=== PATIENT | male | born 1950 | race Caucasian/White ===

== ENCOUNTER 2020-07-22 08:07 | Emergency (ER) | payer MEDICARE, OTHER, SELFPAY ==
[2020-07-22 08:15] VITALS: BP 141/83; PULSE 79; RESP 16; TEMP 36.3; O2SAT 100; BMI 25.7
--- NOTE | 2020-07-22 08:29 | ED_ITS ---
HPI - Abdominal Pain General Chief Complaint: Nausea/Vomiting/Diarrhea Stated Complaint: middle abd pain 5/10/nausea/vomiting x1 day Time Seen by Provider: 07/22/20 08:25 Source: patient Mode of arrival: Ambulatory Limitations: no limitations History of Present Illness HPI narrative: Patient is a 70-year-old male presents with abdominal cramping which started last evening. He has no diarrhea he has felt a little nauseated but no vomiting. No body aches fever or chills. He recently had a pacemaker placed for sick sinus syndrome and orthostatic hypotension he says it is not actually working. But he has not passed out he has no chest pain no heart palpitations. He also started midodrine recently to help with the hypotension. Related Data Home Medications Medication Instructions Recorded Confirmed escitalopram oxalate 10 mg tablet 10 mg PO DAILY 07/06/20 07/15/20 esomeprazole magnesium 20 mg 20 mg PO DAILY 07/06/20 07/15/20 capsule,delayed release lamotrigine 300 mg tablet,extended 300 mg PO DAILY 07/06/20 release 24 hr multivit-mins no.11-folic acid 5 mg PO 07/06/20 07/15/20 mg tablet triamcinolone acetonide 0.1 % 1 applictn TOP DAILY 07/06/20 topical cream chlorhexidine gluconate 4 % 1 applictn TOP ONCE 07/15/20 07/15/20 topical liquid mupirocin calcium 2 % topical cream 1 applictn TOP BID 07/15/20 07/15/20 denosumab 60 mg/mL subcutaneous 60 mg SUBCUT [id number] 07/21/20 syringe leuprolide (3 month) 22.5 mg (3 22.5 mg SUBCUT [id number] 07/21/20 month) subcutaneous syringe Allergies Allergy/AdvReac Type Severity Reaction Status Date / Time No Known Drug Allergies Allergy Verified 07/15/20 15:34 Review of Systems Review of Systems ROS Unobtainable: All systems reviewed & are unremarkable except as noted in HPI and below Constitutional Constitutional: Reports body ache(s), Denies chills, Denies increased appetite and Denies poor appetite Eyes Eyes: Denies change in vision, Denies eye discharge, Denies irritation and Denies loss of vision ENT Ears, Nose, Mouth, and Throat: Denies change in voice, Denies neck pain and Denies sore throat Cardiovascular Cardiovascular: Denies dyspnea and Denies dyspnea on exertion Respiratory Respiratory: Denies cough, Denies dyspnea, Denies dyspnea on exertion and Denies wheezing Gastrointestinal Gastrointestinal: Reports as per HPI Musculoskeletal Musculoskeletal: Denies neck pain Integumentary/Breasts Skin/Breast: Denies pruritus, Denies erythema, Denies rash and Denies wounds Neurologic Neurologic: Denies loss of vision Allergic/Immunologic Allergic/Immunologic: Denies wheezing Patient History Medical History Depression (Acute) Elevated PSA (Acute) Erectile dysfunction (Acute) GERD (gastroesophageal reflux disease) (Acute) Prostate cancer (Acute) Prostate cancer (Acute) Surgical History H/O prostatectomy (Acute) Social History Smoking Status: Never smoker Smoking Status: Never smoker Exam Initial Vital Signs Initial Vital Signs: Vital Signs Temperature 97.3 F L 07/22/20 08:15 Pulse Rate 79 07/22/20 08:15 Respiratory Rate 16 07/22/20 08:15 Blood Pressure 141/83 H 07/22/20 08:15 Pulse Oximetry 100 07/22/20 08:15 GENERAL: Well-appearing, well-nourished and in no acute distress. HEENT: Head atraumatic,EOMI, pupils reactive, face symmetric, moist mucous membranes CARDIOVASCULAR: Regular rate and rhythm without murmurs, rubs or gallops. RESPIRATORY: Breath sounds equal bilaterally, no wheezes rales or rhonchi. ABDOMEN: Soft, mildly tender across lower abdomen no localization no guarding or rebound. Normoactive bowel sounds all 4 quadrants. EXTREMITIES: Normal range of motion, no clubbing or edema. Neurovascularly intact NEUROLOGICAL: Alert and oriented x4.Normal gait and speech. SKIN: Warm, dry, no laceration, no petechiae, no rashes or lesions. Course Orders Ordered: ED Orders 07/22/20 08:57 EKG-12 Lead Stat 07/22/20 09:00 Complete Blood Count AUTO DIFF Stat Comprehensive Metabolic Panel Stat Lipase Stat Discontinued Medications Sodium Chloride (Normal Saline 0.9%) 500 mls @ 1,000 mls/hr IV BOLUS ONE Stop: 07/22/20 09:12 Last Admin: 07/22/20 09:48 Dose: Not Given Documented by: ANDRIA Ondansetron HCl (Zofran) 4 mg IV NOW ONE Stop: 07/22/20 08:44 Last Admin: 07/22/20 09:48 Dose: Not Given Documented by: ANDRIA Vital Signs Vital signs: Vital Signs - 8 hr 07/22/20 08:15 07/22/20 08:58 07/22/20 09:00 Temperature 97.3 F L Pulse Rate 79 66 64 Respiratory Rate 16 Blood Pressure 141/83 H Pulse Oximetry 100 96 96 07/22/20 09:30 07/22/20 10:04 Temperature 98.5 F Pulse Rate 63 70 Respiratory Rate 16 Blood Pressure 123/84 Pulse Oximetry 95 100 MDM - Abdominal Pain Lab Data Attestation: I reviewed the patient's lab results. Result diagrams: 07/22/20 09:00 07/22/20 09:00 Labs: Lab Results 07/22/20 07/22/20 Range/Units 09:00 09:00 WBC 7.7 (4.5-11.0) X10^3/uL RBC 4.22 L (4.5-5.9) X10^6/uL Hgb 12.9 L (13.5-17.5) g/dL Hct 38.8 L (41-53) % MCV 92.0 (80-100) fL MCH 30.5 (26-34) PG MCHC 33.1 (30-36) % RDW 12.7 (11.6-14.8) % Plt Count 221 (150-400) X10^3/uL Neut % (Auto) 82.0 H (50-75) % Lymph % (Auto) 14.2 L (25-40) % Atlantic % (Auto) 3.1 (3-14) % Eos % (Auto) 0.2 L (2-4) % Baso % (Auto) 0.5 (0-2) % Neut # (Auto) 6300 (4072-7756) /uL Lymph # (Auto) 1100 (8013-1330) /uL Atlantic # (Auto) 200 (0-900) /uL Eos # (Auto) 0 (0-450) /uL Baso # (Auto) 0 (0-100) /uL Sodium 135 L (137-145) mmol/L Potassium 4.0 (3.4-5.1) mmol/L Chloride 102 (98-107) mmol/L Carbon Dioxide 25 (22-32) mmol/L BUN 25 H (9-20) mg/dL Creatinine 0.85 (0.66-1.25) mg/dL Estimated GFR > 60.0 (>60) mL/min BUN/Creatinine Ratio 29.4 H (6-22) Glucose 131 H (80-110) mg/dL Calcium 8.8 (8.4-10.2) mg/dL Total Bilirubin 0.6 (0.2-1.3) mg/dL AST 36 (17-59) IU/L ALT 38 (<50) IU/L Alkaline Phosphatase 67 (38-126) U/L Total Protein 7.3 (6.3-8.2) g/dL Albumin 4.2 (3.5-5.0) g/dL Globulin 3.1 (1.7-4.1) g/dL Albumin/Globulin Ratio 1.4 (1.0-2.8) Lipase 52 (23-300) U/L ECG Data Attestation: I personally reviewed and interpreted this ECG as follows: Prior ECG tracings: not available for review Interpretation: Sinus rhythm rate 64 p.r. interval 176 QRS [address] changes atrial pacemaker noted MDM Narrative Medical decision making narrative: Patient is a retired ER physician. Initially CT scan ordered however patient overall feeling better but blood work is reass uring he does not want CT scan. He was able to ambulate without any difficulty. He overall feels better and ready and able to go home. Discharge Plan Departure Patient Disposition: Home Clinical Impression: Abdominal pain Qualifiers: Abdominal location: generalized Qualified Code(s): R10.84 - Generalized abdominal pain Discharge Date/Time: 07/22/20 10:11 Instructions: DI for Abdominal Pain-Adult Activity Restrictions/Additional Instructions: *You have been diagnosed with abdominal pain *What to do: Rest, increase fluid intake *Continue to take medications as directed *Follow up with your primary care provider in 2-3 days *Return to ER if you should have increased abdominal pain inability to tolerate fluids, passing out [or] any new, worsening or concerning symptoms Prescriptions: No Action Dialyvite 5000 5 mg tablet PO RF: 0 escitalopram oxalate 10 mg tablet 10 mg PO DAILY RF: 0 esomeprazole magnesium [Nexium] 20 mg capsule,delayed release(DR/EC) 20 mg PO DAILY RF: 0 lamotrigine [Lamictal XR] 300 mg tablet extended release 24hr 300 mg PO DAILY RF: 0 triamcinolone acetonide 0.1 % cream 1 applictn TOP DAILY RF: 0 Eligard (3 month) 22.5 mg syringe 22.5 mg SUBCUT [id number] RF: 0 Prolia 60 mg/mL syringe 60 mg SUBCUT [id number] RF: 0 mupirocin calcium 2 % cream 1 applictn TOP BID RF: 0 chlorhexidine gluconate [Hibiclens] 4 % liquid 1 applictn TOP ONCE RF: 0 Referrals: Saul Chase MD [Primary Care Provider] -
[2020-07-22 08:58] VITALS: PULSE 66; O2SAT 96
[2020-07-22 09:00] VITALS: PULSE 64; O2SAT 96
[2020-07-22 09:12] LABS: Add Manual Diff / Slide Review NO; Basophils Absolute Auto 0 /uL (0-100); Basophils Percent Auto 0.5 % (0-2); Eosinophils Absolute Auto 0 /uL (0-450); Eosinophils Percent Auto 0.2 % (2-4); Hematocrit 38.8 % (41-53); Hemoglobin 12.9 g/dL (13.5-17.5); Lymphocytes Absolute Auto 1100 /uL (1100-4500); Lymphocytes Percent Auto 14.2 % (25-40); Mean Corpuscular HGB Conc 33.1 % (30-36); Mean Corpuscular Hemoglobin 30.5 PG (26-34); Monocytes Absolute Auto 200 /uL (0-900); Monocytes Percent Auto 3.1 % (3-14); Neutrophils Absolute Auto 6300 /uL (1500-7000); Platelet Count 221 X10^3/uL (150-400); Red Blood Cell Count 4.22 X10^6/uL (4.5-5.9); Red Cell Distribution Width 12.7 % (11.6-14.8); White Blood Cell Count 7.7 X10^3/uL (4.5-11.0)
[2020-07-22 09:27] LABS: Alanine Aminotransferase 38 IU/L (<50); Albumin 4.2 g/dL (3.5-5.0); Albumin Globulin Ratio 1.4 (1.0-2.8); Alkaline Phosphatase 67 U/L (38-126); Aspartate Aminotransferase 36 IU/L (17-59); BUN Creatinine Ratio 29.4 (6-22); Bilirubin Total 0.6 mg/dL (0.2-1.3); Blood Urea Nitrogen 25 mg/dL (9-20); Calcium 8.8 mg/dL (8.4-10.2); Carbon Dioxide 25 mmol/L (22-32); Chloride 102 mmol/L (98-107); Estimated Glomerular Filt Rate > 60.0 mL/min (>60); Globulin 3.1 g/dL (1.7-4.1); Glucose 131 mg/dL (80-110); HEMOLYSIS < 15 (0-50); Lipase 52 U/L (23-300); Sodium 135 mmol/L (137-145); Total Protein 7.3 g/dL (6.3-8.2)
[2020-07-22 09:30] VITALS: PULSE 63; O2SAT 95
--- NOTE | 2020-07-22 09:34 | PC.NURSE ---
Pt reports improvement. Dr at bedside. pt is declining medication and imaging at this time.
[2020-07-22 10:04] VITALS: BP 123/84; PULSE 70; RESP 16; TEMP 36.9; O2SAT 100
== END 2020-07-22 10:11 | disposition home or self-care (01) ==
PROVIDERS: Emergency Provider Emergency Medicine; PCP Student in an Organized Health Care Education/Training Program
DX: R10.84 Generalized abdominal pain (principal); R07.9 Chest pain, unspecified; R11.0 Nausea; Z95.0 Presence of cardiac pacemaker; I95.9 Hypotension, unspecified
CPT/HCPCS: 36415; 80053; 83690; 85025; 93005; 99283; 99284

== ENCOUNTER → 2020-09-07 10:10 | Outpatient (CLI) | payer MEDICARE, OTHER, SELFPAY ==
[2020-09-07 11:24] LABS: Blood Urea Nitrogen 24 mg/dL (9-20); Calcium 8.9 mg/dL (8.4-10.2); Carbon Dioxide 32 mmol/L (22-32); Chloride 103 mmol/L (98-107); Estimated Glomerular Filt Rate > 60.0 mL/min (>60); Glucose 104 mg/dL (80-110); HEMOLYSIS < 15 (0-50); Potassium 4.6 mmol/L (3.4-5.1); Sodium 138 mmol/L (137-145)
[2020-09-07 17:36] LABS: Vitamin D 25 Hydroxy (D3) 48.2 ng/mL (30.0-100.0)
== END ==
PROVIDERS: PCP Student in an Organized Health Care Education/Training Program; Referring Provider Student in an Organized Health Care Education/Training Program; Visit Provider Student in an Organized Health Care Education/Training Program
DX: Z13.820 Encounter for screening for osteoporosis (principal); I95.1 Orthostatic hypotension; E55.9 Vitamin D deficiency, unspecified; Z85.46 Personal history of malignant neoplasm of prostate; Z91.89 Other specified personal risk factors, not elsewhere classified; Z79.899 Other long term (current) drug therapy
CPT/HCPCS: 36415; 77080; 80048; 82306

== ENCOUNTER → 2021-02-16 11:49 | Outpatient (CLI) | payer MEDICARE, OTHER, SELFPAY ==
--- NOTE | 2021-02-16 11:57 | DI.CT.S_ITS ---
PROCEDURE: CT HEAD/BRAIN WO CON INDICATIONS: F/u brain trauma hemorrhagic stroke. TECHNIQUE: Noncontrast 4.5 mm thick angled axial sections acquired from the foramen magnum to the vertex, with coronal and sagittal reformats. For radiation dose reduction, the following was used: automated exposure control, adjustment of mA and/or kV according to patient size. COMPARISON: [facility], CT, CT HEAD WITHOUT CONTRAST, 12/27/2020, 16:07. Outside Facility, RG, CT HEAD W/O CONTRAST, 01/04/2021, 21:59. Outside Facility, RG, CT HEAD W/O CONTRAST, 01/10/2021, 11:04. Outside Facility, RG, CT HEAD W/O CONTRAST, 02/05/2021, 15:34. FINDINGS: Image quality: Excellent. CSF spaces: Basal cisterns are patent. No extra-axial fluid collections. The ventricles are symmetric in size and shape. Brain: Encephalomalacia can be seen involving the anterior inferior frontal lobes medially, right worse than left. A milder anterior left temporal area of low density is also seen. The previously seen hemorrhage is no longer definitely seen and has been resorbed. No new hemorrhage can be seen. No intracranial masses. There is cerebral volume loss for age, with resultant ventricular and sulcal prominence. There are periventricular and deep white matter chronic small vessel ischemic changes. There is intracranial internal carotid artery atherosclerosis. Skull and face: A mildly displaced left occipital fracture is again seen. Calvarium and visualized facial bones appear intact, without suspicious lesions. Sinuses: Visualized sinuses and mastoids are clear. IMPRESSION: Expected evolution of the patient's known bilateral frontal infarctions with encephalomalacia, right worse than left. A milder evolving infarction can also be seen involving the anterior left temporal lobe. Left occipital bone fracture again seen. Dictated by: Simeon Cedeño M.D. on 02/16/2021 at 12:26 Approved by: Simeon Cedeño M.D. on 02/16/2021 at 12:31
== END ==
PROVIDERS: PCP Student in an Organized Health Care Education/Training Program; Referring Provider Student in an Organized Health Care Education/Training Program; Visit Provider Student in an Organized Health Care Education/Training Program
DX: S06.9X9A Unspecified intracranial injury with loss of consciousness of unspecified duration, initial encounter (principal); S02.119A Unspecified fracture of occiput, initial encounter for closed fracture; I61.9 Nontraumatic intracerebral hemorrhage, unspecified; R20.2 Paresthesia of skin; G93.89 Other specified disorders of brain; X58.XXXA Exposure to other specified factors, initial encounter
CPT/HCPCS: 70450